=== PATIENT | female | born 1990 | race Caucasian/White ===

== ENCOUNTER 2020-07-13 03:04 | Inpatient (IN) | payer MEDICAID ==
[~2020-07-13 03:04] MED LIST: Lidocaine 1.5% with EPINEPHrine 1:200,000 5 ML Amp ONE
[2020-07-13] MEDS ORDERED: Ondansetron 4 MG/2 ML SDV IVPUSH PRN (04:31)
[2020-07-13] MEDS ORDERED: Sodium Chloride 0.9% 10 ML Syringe FLUSH PRN (04:31)
[2020-07-13] MEDS ORDERED: Ampicillin 2 GM in Sodium Chloride 0.9% 100 ML IV ONE (04:31)
[2020-07-13] MEDS ORDERED: Oxytocin/Lactated Ringers 10 UNIT/1,000 ML BAG IV SCH ×2 (04:45)
[2020-07-13] MEDS: Lactated Ringers 1,000 ML IV SCH ×4 (05:11→10:10)
[2020-07-13] MEDS ORDERED: diphenhydrAMINE 50 MG/ML SDV IVPUSH PRN (05:34)
[2020-07-13] MEDS ORDERED: ePHEDrine 50 MG/ML SDV IVPUSH PRN (05:34)
[2020-07-13] MEDS ORDERED: Bupivacaine/fentaNYL/NS 100 ML Bag EPIDUR PRN (05:34)
[2020-07-13] MEDS ORDERED: fentaNYL 100 MCG/2 ML SDV EPIDUR PRN (05:34)
--- NOTE | 2020-07-13 05:51 | PCM.PREANE ---
Preanesthetic Assessment - Procedure Proposed Procedure: Continuous labor epidural - Anesthesia/Transfusion/Family Hx Anesthesia History: Prior Anesthesia Without Reaction - Review of Systems General: No Symptoms Pulmonary: No Symptoms Cardiovascular: No Symptoms Gastrointestinal: No Symptoms Neurological: No Symptoms Other: Reports: None - Physical Assessment Vital Signs: Last Vital Signs Temp 98.3 F 07/13/20 03:28 Pulse 84 07/13/20 03:28 Resp 18 07/13/20 03:28 BP 133/80 07/13/20 03:28 Pulse Ox 98 07/13/20 03:28 Height: 1.78 m Weight: 94.256 kg ASA Class: 2 Mental Status: Alert & Oriented x3 Airway Class: Mallampati = 2 Dentition: Reports: Normal Dentition Thyro-Mental Finger Breadths: 3 Mouth Opening Finger Breadths: 3 ROM/Head Extension: Full Lungs: Clear to Auscultation, Normal Respiratory Effort Cardiovascular: Regular Rate, Regular Rhythm - Lab Values: Laboratory Last Values WBC 17.97 K/mm3 (3.98-10.04) H 07/13/20 04:45 RBC 4.18 M/mm3 (3.98-5.22) 07/13/20 04:45 Hgb 12.6 gm/dl (11.2-15.7) 07/13/20 04:45 Hct 37.4 % (34.1-44.9) 07/13/20 04:45 MCV 89.5 fl (79.4-94.8) 07/13/20 04:45 MCH 30.1 pg (25.6-32.2) 07/13/20 04:45 MCHC 33.7 g/dl (32.2-35.5) 07/13/20 04:45 RDW Std Deviation 43.7 fL (36.4-46.3) 07/13/20 04:45 Plt Count 220 K/mm3 (182-369) 07/13/20 04:45 MPV 11.2 fl (9.4-12.3) 07/13/20 04:45 Neut % (Auto) 80.6 % (34.0-71.1) H 07/13/20 04:45 Lymph % (Auto) 12.5 % (19.3-51.7) L 07/13/20 04:45 Cochran % (Auto) 6.0 % (4.7-12.5) 07/13/20 04:45 Eos % (Auto) 0.4 (0.7-5.8) L 07/13/20 04:45 Baso % (Auto) 0.1 % (0.1-1.2) 07/13/20 04:45 Neut # (Auto) 14.47 K/mm3 (1.56-6.13) H 07/13/20 04:45 Lymph # (Auto) 2.25 K/mm3 (1.18-3.74) 07/13/20 04:45 Cochran # (Auto) 1.07 K/mm3 (0.24-0.36) H 07/13/20 04:45 Eos # (Auto) 0.08 K/mm3 (0.04-0.36) 07/13/20 04:45 Baso # (Auto) 0.02 K/mm3 (0.01-0.08) 07/13/20 04:45 Membrane Rupture Negative 07/13/20 03:25 Blood Type O POSITIVE 07/13/20 04:45 Gel Antibody Screen Negative 07/13/20 04:45 - Allergies Allergies/Adverse Reactions: Allergies Allergy/AdvReac Type Severity Reaction Status Date / Time codeine Allergy Syncope Verified 07/13/20 05:42 PreAnesthesia Questionnaire - Past Surgical History HEENT Surgical History: Reports: Oral Surgery, Tonsillectomy GI Surgical History: Reports: Hernia Repair/Other - HOME MEDS Home Medications: Home Meds Omeprazole 20 mg PO DAILY 07/13/20 [History] Vits #93/Iron Fum/FA [ Formula Tablet] 1 each PO DAILY 07/13/20 [History] - CURRENT (IN HOUSE) MEDS Current Meds: Current Medications Diphenhydramine HCl (Benadryl) 25 mg IVPUSH Q6H PRN PRN Reason: pruritis Ephedrine Sulfate (Ephedrine Sulfate) 5 mg IVPUSH ASDIRECTED PRN PRN Reason: Hypotension Fentanyl (Sublimaze) 100 mcg EPIDUR Q3H PRN PRN Reason: Pain Fentanyl/Bupivacaine HCl (Fentanyl/Bupivacaine/Ns 2 Mcg-0.125% 100 Ml) 100 ml EPIDUR ASDIRECTED PRN PRN Reason: Pain Lactated Ringer's (Ringers, Lactated) 1,000 mls @ 100 mls/hr IV ASDIRECTED AUBREY Last Admin: 07/13/20 05:11 Dose: 100 mls/hr Documented by: Ampicillin Sodium 1 gm/ Sodium (Chloride) 100 mls @ 200 mls/hr IV Q4H AUBREY Oxytocin/Lactated Ringer's (Pitocin In Lr 10 Units/1,000 Ml) 10 unit in 1,000 mls @ 12 mls/hr IV TITRATE AUBREY; Protocol Oxytocin/Lactated Ringer's (Pitocin In Lr 10 Units/1,000 Ml) 10 unit in 1,000 mls @ 100 mls/hr IV .CONTINUOUS AUBREY Ondansetron HCl (Zofran) 4 mg IVPUSH Q4H PRN PRN Reason: Nausea/Vomiting Sodium Chloride (Saline Flush) 10 ml FLUSH ASDIRECTED PRN PRN Reason: Keep Vein Open Discontinued Medications Ampicillin Sodium 2 gm/ Sodium (Chloride) 100 mls @ 200 mls/hr IV ONETIME ONE Stop: 07/13/20 05:00 Last Admin: 07/13/20 05:11 Dose: 200 mls/hr Documented by:
--- NOTE | 2020-07-13 07:53 | PCM.LDHP ---
L&D History of Present Illness - General Date of Service: 07/13/20 Admit Problem/Dx: Patient Status Order with Admit Dx/Problem 07/13/20 03:47 Patient Status [ADT] Routine 07/13/20 04:32 Patient Status [ADT] Routine Admission Diagnosis/Problem Admission Diagnosis/Problem 07/13/20 07:44 Hoang is a 29-year-old 2 para 1-0-0-1 female admitted on the a.m. of 07/13/2020 at 7-1/7 weeks gestational age with an ANDREA of 08/03/2020 for active labor and advanced cervical dilation. Source of Information: Patient History Limitations: Reports: No Limitations - History of Present Illness Introduction:: Hoang is a 29-year-old 2 para 1-0-0-1 female admitted on the a.m. of 07/13/2020 at 7-1/7 weeks gestational age with an ANDREA of 08/03/2020 for active labor and advanced cervical dilation. She reports starting labor early this a.m. Was unable to get adequate sleep. Contractions coming every 2 to 4 minutes, moderate intensity. On evaluation in the hospital she progressed from 2 to 3 cm to 5 cm and was fadi as reported by the patient. She is admitted for active labor. At the time my evaluation she was 5 cm, -3 station, membranes intact. No acute vaginal bleeding noted heart tones reassuring. [employer] history: 2 para 1-0-0-1. ANDREA of 08/03/2020 as determined by her first ultrasound done at 6-4/7 weeks gestational age and supported by 2 other ultrasounds done on 03/16/2020 and 04/25/2020. Patient has a history of menarche at approximately age pain. Cycles q. 28 days and regular. Not using any control at the time of conception. No abnormal Pap smears or STDs noted in the past. Her last delivery included the followin. Male infant born 08/25/2015 at 39-5/7 weeks gestational age after 12 hours of labor7 pound 6 ounce infant born via NSVDepidural used. Child's name is Ginger Vee course. Patient was seen initially at 6 weeks and 4 days. Ultrasound done at that time confirmed ANDREA of 08/03/2020. Her course was with regular visits. Patient lost weight during the course of but was eating well. Her vital signs are stable throughout the course. She is group B strep positive and is received her first dose of prophylactic ampicillin. She declined genetic testing. She has some depression symptoms with anxiety but is not on any medications for this. Did have some heartburn during which was treated with Nexium successfully. She is planning to bottlefeed. Her EPDS score was 7/30 on 04/03/2020. She failed her first glucose tolerance test but passed her 3-hour GTT with the values of 83, 159, 151 and 100. labs include the following: Blood is O+ with negative antibody screen. hemoglobin is 12.7 g/dL and platelets are 329,000. She is rubella immune. RPR is nonreactive. Urine culture was negative and hepatitis B surface antigen and HIV assays were both negative also. Her chlamydia and gonorrhea tests were negative. Second trimester labs showed a hemoglobin 11.7 g/dL which time she was advised to get on iron supplementation. Her platelet count was 245,000. Her RPR was nonreactive. RPR was again repeated on 05/01/2020 which was nonreactive. Her group B strep screen was positive. Allergies: 1. Codeine derivatives which cause nausea and vomiting 2. Relpaxreaction unknown. Medications: 1. Nexium 20 mg p.o. daily as needed for gastric reflux 2. vitamins 1 daily Past medical history: 1. x1. 2. History of anxiety and depression treated with sertraline after her last 3. GERD treated with Nexium successfully. Patient has a history of hiatal hernia. Past surgical history: 1. Tonsillectomy and wisdom tooth extraction 2. EGD x2 Family history: No significant related issues noted. No bleeding, blo od clotting, anesthesia or asthma noted in the family. Social history: Patient is . is Edward. 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 She lives in [place], [place]. She does not use any significant also alcohol, drugs or tobacco. Review of systems: In general patient has no complaints. She is having some c ontractions. These are mild to moderate in intensity. Baby has been active. Skin: Negative Lungs: No infectious symptoms or shortness of breath Cardiovascular: No chest pain or exercise intolerance Breasts: No lumps, changes in size, pain, dimpling, discharge or axillary or supraclavicular concerns. GI: Negative : changes. Musculoskeletal: Negative Neurological: Negative Physical exam: In general the patient is well-developed, well-nourished, pleasant female of stated age in no acute distress. Evaluation in clinic patient's blood pressure was 112/74. Fundal height was 37. Weight was 203.8. heart rate was 142 bpm. Skin is warm dry without lesions. HEENT, neck and back within normal limits. Lungs are clear with good breath sounds in all lung vallejo. Cardiovascular exam shows regular and rhythm without murmurs. Abdomen is avid with fundal height of 37 cm. Baby in vertex presentation. Genital per duration is as described above. Extremities and neurological exam are grossly within normal limits. Pain Score: 7 - Related Data Allergies/Adverse Reactions: Allergies Allergy/AdvReac Type Severity Reaction Status Date / Time codeine Allergy Syncope Verified 07/13/20 05:42 Home Medications: Home Meds Omeprazole 20 mg PO DAILY 07/13/20 [History] Vits #93/Iron Fum/FA [ Formula Tablet] 1 each PO DAILY 07/13/20 [History] Past Medical History - Past Health History Medical/Surgical History: Denies Medical/Surgical History Cardiovascular History: Reports: None Gastrointestinal History: Reports: None [employer]PER[employer]OR History: Reports: - Past Surgical History HEENT Surgical History: Reports: Oral Surgery, Tonsillectomy GI Surgical History: Reports: Hernia Repair/Other Social & Family History - Family History Family Medical History: No Pertinent Family History Cardiac: Reports: Other (See Below) Other Cardiac Family History: Paternal Grandpa Heart Attack and Stents Placed. Father - blockage, but no surgery needed Psychiatric: Reports: Depression Endocrine/Metabolic: Reports: Other (See Below) Other Endocrine/Metabolic Family History: Maternal Grandma - Diabetes, not specified - Tobacco Use Tobacco Use Status *Q: Never Tobacco User Second Hand Smoke Exposure: No - Recreational Drug Use Recreational Drug Use: No H&P Review of Systems - Review of Systems: Review Of Systems: See Below L&D Exam - Exam Exam: See Below - Vital Signs Vital Signs: Last Vital Signs Temp 36.8 C 07/13/20 03:28 Pulse 84 07/13/20 03:28 Resp 18 07/13/20 03:28 BP 133/80 07/13/20 03:28 Pulse Ox 98 07/13/20 03:28 Weight: 94.256 kg - Patient Data Lab Results Last 24 hrs: Laboratory Results - last 24 hr 07/13/20 07/13/20 07/13/20 Range/Units 03:25 04:45 04:45 WBC 17.97 H (3.98-10.04) K/mm3 RBC 4.18 (3.98-5.22) M/mm3 Hgb 12.6 (11.2-15.7) gm/dl Hct 37.4 (34.1-44.9) % MCV 89.5 (79.4-94.8) fl MCH 30.1 (25.6-32.2) pg MCHC 33.7 (32.2-35.5) g/dl RDW Std Deviation 43.7 (36.4-46.3) fL Plt Count 220 (182-369) K/mm3 MPV 11.2 (9.4-12.3) fl Neut % (Auto) 80.6 H (34.0-71.1) % Lymph % (Auto) 12.5 L (19.3-51.7) % [place] % (Auto) 6.0 (4.7-12.5) % Eos % (Auto) 0.4 L (0.7-5.8) Baso % (Auto) 0.1 (0.1-1.2) % Neut # (Auto) 14.47 H (1.56-6.13) K/mm3 Lymph # (Auto) 2.25 (1.18-3.74) K/mm3 [place] # (Auto) 1.07 H (0.24-0.36) K/mm3 Eos # (Auto) 0.08 (0.04-0.36) K/mm3 Baso # (Auto) 0.02 (0.01-0.08) K/mm3 Membrane Rupture Negative Blood Type O POSITIVE Gel Antibody Screen Negative Result Diagrams: 07/13/20 04:45 Problem List Initiated/Reviewed/Updated: Yes Orders Last 24hrs: Active Orders 24 hr Category Date Time Status Patient Status [ADT] Routine ADT 07/13/20 04:32 Active Activity as Tolerated [RC] PFP Care 07/13/20 04:31 Active Communication Order [RC] ASDIRECTED Care 07/13/20 04:31 Active Heart Tones [RC] ASDIRECTED Care 07/13/20 04:32 Active Non Stress Test [RC] PER UNIT ROUTINE Care 07/13/20 03:47 Active Notify Provider [RC] ASDIRECTED Care 07/13/20 05:34 Active Notify Provider [RC] PFP Care 07/13/20 04:31 Active Notify Provider [RC] PRN Care 07/13/20 04:31 Active Peripheral IV Care [RC] . DIRECTED Care 07/13/20 04:32 Active Vital Signs [RC] PER UNIT ROUTINE Care 07/13/20 03:47 Active Vital Signs [RC] PER UNIT ROUTINE Care 07/13/20 04:31 Active Regular Diet [DIET] Diet 07/13/20 Breakfast Active RAPID PLASMA REAGIN,RPR [CHEM] Routine Lab 07/13/20 04:45 Received Ampicillin 1 gm Med 07/13/20 09:00 Active Sodium Chloride 0.9% [Normal Saline] 100 ml IV Q4H Bupivacaine/fentaNYL/NS [fentaNYL/Bupivacaine/NS 2 MCG- Med 07/13/20 05:34 Active 0.125% 100 ML] 100 ml EPIDUR ASDIRECTED PRN Lactated Ringers [Ringers, Lactated] 1,000 ml Med 07/13/20 04:45 Active IV ASDIRECTED Ondansetron [Zofran] Med 07/13/20 04:31 Active 4 mg IVPUSH Q4H PRN Oxytocin/Lactated Ringers [Pitocin in LR 10 Units/1,000 Med 07/13/20 04:45 Active ML] 10 unit in 1,000 ml IV .CONTINUOUS Oxytocin/Lactated Ringers [Pitocin in LR 10 Units/1,000 Med 07/13/20 04:45 Active ML] 10 unit in 1,000 ml IV TITRATE Sodium Chloride 0.9% [Saline Flush] Med 07/13/20 04:31 Active 10 ml FLUSH ASDIRECTED PRN diphenhydrAMINE [Benadryl] Med 07/13/20 05:34 Active 25 mg IVPUSH Q6H PRN ePHEDrine [ePHEDrine sulfate] Med 07/13/20 05:34 Active 5 mg IVPUSH ASDIRECTED PRN fentaNYL [Sublimaze] Med 07/13/20 05:34 Active 100 mcg EPIDUR Q3H PRN Electronic Heart Tones Ext w TOCO [WOMSER] Oth 07/13/20 04:31 Ordered Routine Electronic Heart Tones Internal [WOMSER] Per Unit Oth 07/13/20 04:31 Ordered Routine Peripheral IV Insertion Adult [OM.PC] Routine Oth 07/13/20 04:31 Ordered Resuscitation Status Routine Resus Stat 07/13/20 03:47 Ordered Medication Orders Diphenhydramine HCl (Benadryl) 25 mg IVPUSH Q6H PRN PRN Reason: pruritis Ephedrine Sulfate (Ephedrine Sulfate) 5 mg IVPUSH ASDIRECTED PRN PRN Reason: Hypotension Fentanyl (Sublimaze) 100 mcg EPIDUR Q3H PRN PRN Reason: Pain Last Admin: 07/13/20 05:56 Dose: 100 mcg Documented by: GRETA Fentanyl/Bupivacaine HCl (Fentanyl/Bupivacaine/Ns 2 Mcg-0.125% 100 Ml) 100 ml EPIDUR ASDIRECTED PRN PRN Reason: Pain Last Admin: 07/13/20 05:56 Dose: 100 ml Documented by: GRETA Lactated Ringer's (Ringers, Lactated) 1,000 mls @ 100 mls/hr IV ASDIRECTED AUBREY Last Admin: 07/13/20 06:57 Dose: 100 mls/hr Documented by: Infusion: 07/13/20 06:57 Dose: 100 mls/hr Documented by: Admin: 07/13/20 06:01 Dose: 100 mls/hr Documented by: Infusion: 07/13/20 06:01 Dose: 100 mls/hr Documented by: Admin: 07/13/20 05:11 Dose: 100 mls/hr Documented by: GRETA Ampicillin Sodium 1 gm/ Sodium (Chloride) 100 mls @ 200 mls/hr IV Q4H AUBREY Oxytocin/Lactated Ringer's (Pitocin In Lr 10 Units/1,000 Ml) 10 unit in 1,000 mls @ 12 mls/hr IV TITRATE AUBREY; Protocol Oxytocin/Lactated Ringer's (Pitocin In Lr 10 Units/1,000 Ml) 10 unit in 1,000 mls @ 100 mls/hr IV .CONTINUOUS AUBREY Ondansetron HCl (Zofran) 4 mg IVPUSH Q4H PRN PRN Reason: Nausea/Vomiting Sodium Chloride (Saline Flush) 10 ml FLUSH ASDIRECTED PRN PRN Reason: Keep Vein Open Assessment/Plan Comment:: 1. And 1/7-week intrauterine , active labor with advanced cervical dilation 2. Group B strep screen positive patient has received first dose of prophyl actic ampicillin 3. Patient has desire for epidural 4. Patient plans to bottlefeed. 5. Tdap given during on 05/30/2020. She is rubella immune. HPV vaccination given in 2007. Hepatitis B vaccination given in 2003. Meningeal vaccination given in 2007. Plan: 1. Anticipate 2. Group B strep prophylaxis with ampicillin per protocol 3. Admission labs consist of Covid19 testing, RPR and CBC. 4. Routine labor care.
[2020-07-13] MEDS: Ampicillin 1 GM in Sodium Chloride 0.9% 100 ML IV SCH ×2 (09:03→15:52)
[2020-07-13] MEDS ORDERED: Benzocaine/Menthol 20%-0.5% Spray 56 GM Canister TOP PRN ×2 (15:17→15:52)
[2020-07-13] MEDS ORDERED: Witch Hazel Medicated Pads 40/Jar TOP PRN ×2 (15:17→15:52)
[2020-07-13] MEDS ORDERED: Ibuprofen 600 MG Tab PO PRN (15:52)
[2020-07-13] MEDS ORDERED: Acetaminophen 325 MG Tab PO PRN (15:52)
[2020-07-13] MEDS ORDERED: Docusate Sodium 100 MG Cap PO PRN (15:52)
--- NOTE | 2020-07-13 15:53 | PCM.SN.2 ---
- Free Text/Narrative Note: Delivery note: Hoang is a 29-year-old 2 now para 2-0-0-2 female admitted on the a.m. of 07/13/2020 at 37-1/7 weeks gestational age with an ANDREA of 08/03/2020 for active labor and advanced cervical dilation. The patient progressed slowly until Pitocin augmentation was started. With this she progressed to 6 to 7 cm. She underwent artificial rupture membranes and then progressed rapidly to complete cervical dilation. At 1307 hrs. on 07/13/2020 patient delivered a viable, 3140 g (6 pounds 15 ounces male with Apgars of 8 and 9 in 8 direct occiput anterior position. Perineum remained intact. Baby was placed on mom's abdomen. Pitocin was increased to 500 cc/h to facilitate increase in uterine tone and decrease likelihood of bleeding. Cord is allowed to pulsate times approximately 2 to 3 minutes and then was clamped x2 and cut by the baby's father. The umbilical cord had 3 vessels. Cord blood was obtained. The placenta delivered in a Gudino fashion, appeared intact and complete and was discarded per patient desire. Estimated blood loss was 100 cc. Patient plans to bottlefeed. Condition: Good.
--- NOTE | 2020-07-14 05:24 | PCM.DCSUM1 ---
Discharge Summary - Hospital Course Free Text/Narrative:: Hoang is a 29-year-old 2 now para 2-0-0-2 female admitted on the a.m. of 07/13/2020 at 37-1/7 weeks gestational age with an ANDERA of 08/03/2020 for active labor and advanced cervical dilation. The patient progressed slowly until Pitocin augmentation was started. With this she progressed to 6 to 7 cm. She underwent artificial rupture membranes and then progressed rapidly to complete cervical dilation. At 1307 hrs. on 07/13/2020 patient delivered a viable, 3140 g (6 pounds 15 ounces male infant with Apgars of 8 and 9 in 8 direct occiput anterior position. Perineum remained intact. Baby was placed on mom's abdomen. Pitocin was increased to 500 cc/h to facilitate increase in uterine tone and decrease likelihood of bleeding. Cord is allowed to pulsate times approximately 2 to 3 minutes and then was clamped x2 and cut by the baby's father. The umbilical cord had 3 vessels. Cord blood was obtained. The placenta delivered in a Gudino fashion, appeared intact and complete and was discarded per patient desire. Estimated blood loss was 100 cc. Patient plans to bottlefeed. the patient is ambulating well, has minimal lochia. She is bottle- feeding without concerns. She is voiding without problems. She is desiring discharge home. Condition: Good. Diagnosis: Stroke: No - Discharge Data Discharge Date: 07/14/20 Discharge Disposition: Home, Self-Care 01 Condition: Good - Referral to Home Health Primary Care Physician: Justin Reyes MD - Patient Instructions Diet: Regular Diet as Tolerated Activity: As Tolerated (No intercourse or tampons until bleeding resolves) Driving: May Drive Today Showering/Bathing: May Shower Showering/Bathing, Other: May take a bath Notify Provider of: Fever, Increased Pain, Swelling and Redness, Nausea and/or Vomiting - Discharge Plan Home Medications: Home Meds Vits #93/Iron Fum/FA [ Formula Tablet] 1 each PO DAILY 07/13/20 [History] Acetaminophen [Tylenol] 650 mg PO Q4H PRN tablet 07/14/20 [Rx] Docusate Sodium [Colace] 100 mg PO BID PRN cap 07/14/20 [Rx] Ibuprofen [Motrin] 600 mg PO Q4H PRN tablet 07/14/20 [Rx] yessy Flowers [Tucks] 1 pad TOP ASDIRECTED PRN pad 07/14/20 [Rx] Referrals: Justin Reyes MD [Primary Care Provider] - (Return to clinicDr. Reyes or Sindhu olivera, nurse practitioner, 2 weeks.) - Discharge Summary/Plan Comment DC Time >30 min.: No Discharge Summary/Plan Comment: Discharge instructions: 1. Discharge home 2. Diet, activity and follow-up discussed with patient. Recommend nursing diet with increased calories and calcium. 3. Precautions given concern increased pain, bleeding, temperature, signs/symptoms of DVT/PE. 4. Medications per home medication was printed, discussed with and given to the patient. 5. Return to clinic[facility]Dr[facility] Reyes [facility] Diagnosis: Term -delivered Condition: Good - Patient Data Vitals - Most Recent: Last Vital Signs Temp 36.7 C 07/14/20 03:48 Pulse 69 07/14/20 03:48 Resp 16 07/14/20 03:48 BP 115/57 L 07/14/20 03:48 Pulse Ox 99 07/14/20 03:48 Weight - Most Recent: 94.256 kg I&O - Last 24 hours: Intake & Output 07/13/20 07/13/20 07/14/20 14:59 22:59 06:59 Intake Total 3200 2000 Output Total 900 Balance 2300 2000 Lab Results - Last 24 hrs: Laboratory Results - last 24 hr 07/13/20 07/13/20 Range/Units 04:45 04:45 RPR Non-reactive (NONREACTIVE) Gel Antibody Screen Negative Med Orders - Current: Current Medications Acetaminophen (Tylenol) 650 mg PO Q4H PRN PRN Reason: mild pain or fever Benzocaine/Menthol (Dermoplast Pain Relief [place]) 0 gm TOP ASDIRECTED PRN PRN Reason: Perineal Comfort Measure Docusate Sodium (Colace) 100 mg PO BID PRN PRN Reason: Constipation Ibuprofen (Motrin) 600 mg PO Q4H PRN PRN Reason: Mild pain or fever Last Admin: 07/13/20 22:04 Dose: 600 mg Documented by: Prenat Multivit/Hydraulic Hammer Operator/Iron/Folic Ac ( Plus Iron) 1 each PO DAILY [facility] Yessy Flowers (Tucks) 1 pad TOP ASDIRECTED PRN PRN Reason: Perineal Comfort Measure Discontinued Medications Benzocaine/Menthol (Dermoplast Pain Relief [place]) 0 gm TOP ASDIRECTED PRN PRN Reason: perineal discomfort Last Admin: 07/13/20 15:32 Dose: 1 can Documented by: Diphenhydramine HCl (Benadryl) 25 mg IVPUSH Q6H PRN PRN Reason: pruritis Ephedrine Sulfate (Ephedrine Sulfate) 5 mg IVPUSH ASDIRECTED PRN PRN Reason: Hypotension Fentanyl (Sublimaze) 100 mcg EPIDUR Q3H PRN PRN Reason: Pain Last Admin: 07/13/20 05:56 Dose: 100 mcg Documented by: Fentanyl/Bupivacaine HCl (Fentanyl/Bupivacaine/Ns 2 Mcg-0.125% 100 Ml) 100 ml EPIDUR ASDIRECTED PRN PRN Reason: Pain Last Admin: 07/13/20 05:56 Dose: 100 ml Documented by: Lactated Ringer's (Ringers, Lactated) 1,000 mls @ 100 mls/hr IV ASDIRECTED [facility] Last Admin: 07/13/20 10:10 Dose: 100 mls/hr Documented by: Ampicillin Sodium 2 gm/ Sodium (Chloride) 100 mls @ 200 mls/hr IV ONETIME ONE Stop: 07/13/20 05:00 Last Admin: 07/13/20 05:11 Dose: 200 mls/hr Documented by: Ampicillin Sodium 1 gm/ Sodium (Chloride) 100 mls @ 200 mls/hr IV Q4H [facility] Last Admin: 07/13/20 15:52 Dose: Not Given Documented by: Oxytocin/Lactated Ringer's (Pitocin In Lr 10 Units/1,000 Ml) 10 unit in 1,000 mls @ 12 mls/hr IV TITRATE [facility]; Protocol Last Titration: 07/13/20 11:00 Dose: 16 munits/min, 96 mls/hr Documented by: Oxytocin/Lactated Ringer's (Pitocin In Lr 10 Units/1,000 Ml) 10 unit in 1,000 mls @ 100 mls/hr IV .CONTINUOUS [facility] Lidocaine/Epinephrine (Xylocaine-Mpf 1.5% W/Epinephrine 1:200,000) 5 ml .ROUTE .STK-MED ONE Stop: 07/13/20 00:01 Ondansetron HCl (Zofran) 4 mg IVPUSH Q4H PRN PRN Reason: Nausea/Vomiting Last Admin: 07/13/20 07:54 Dose: 4 mg Documented by: Sodium Chloride (Saline Flush) 10 ml FLUSH ASDIRECTED PRN PRN Reason: Keep Vein Open Withair Flowers (Chinyere) 1 pad TOP ASDIRECTED PRN PRN Reason: perineal discomfort Last Admin: 07/13/20 15:32 Dose: 1 container Documented by:
[2020-07-14] MEDS ORDERED: Prenatal Multivitamin with Calcium/Folic Acid/Iron Tab PO SCH (09:00)
[2020-07-14 14:03] VITALS: BP 111/66; PULSE 54
--- NOTE | 2020-07-14 14:03 | PCM48HPAN ---
Post Anesthesia Note - EVALUATION WITHIN 48HRS OF ANESTHETIC Vital Signs in Normal Range: Yes Patient Participated in Evaluation: Yes Respiratory Function Stable: Yes Airway Patent: Yes Cardiovascular Function Stable: Yes Hydration Status Stable: Yes Pain Control Satisfactory: Yes Nausea and Vomiting Control Satisfactory: Yes Mental Status Recovered: Yes Vital Signs: Last Vital Signs Temp 36.7 C 07/14/20 03:48 Pulse 69 07/14/20 03:48 Resp 16 07/14/20 03:48 BP 115/57 L 07/14/20 03:48 Pulse Ox 99 07/14/20 03:48
== END 2020-07-14 14:45 | disposition home or self-care (01) | DRG 807 ==
LOC: JD.OB 03:04 → JD.OBCHECK 03:04 → JD.OB 04:32 → OBSVTOIN 13:07 → JD.OB 13:08
PROVIDERS: ADMIT Obstetrics & Gynecology; ATTEND Obstetrics & Gynecology
PROC: 10E0XZZ Delivery of Products of Conception, External Approach (ICD-10-PCS; principal; 2020-07-13)
PROC: 10907ZC Drainage of Amniotic Fluid, Therapeutic from Products of Conception, Via Natural or Artificial Opening (ICD-10-PCS; 2020-07-13)
PROC: 3E0R3BZ Introduction of Anesthetic Agent into Spinal Canal, Percutaneous Approach (ICD-10-PCS; 2020-07-13)
PROC: 00HU33Z Insertion of Infusion Device into Spinal Canal, Percutaneous Approach (ICD-10-PCS; 2020-07-13)
DX: O99.824 Streptococcus B carrier state complicating childbirth (principal); Z37.0 Single live birth; Z88.5 Allergy status to narcotic agent; Z3A.37 37 weeks gestation of pregnancy
CPT/HCPCS: 36415; 51702; 59025; 59409; 84112; 85025; 86592; 86850; 86900; 86901; A9270-GY; J0290; J2405; J2590; J3010; J7050; J7120

== ENCOUNTER 2024-04-06 08:00 | Day surgery (SDC) | payer MEDICAID ==
[~2024-04-06 08:00] MED LIST changes: -Lidocaine 1.5% with EPINEPHrine 1:200,000 5 ML Amp ONE; +Sodium Chloride 0.9% 10 ML Syringe FLUSH PRN; +Sodium Chloride 0.9% 10 ML Syringe FLUSH SCH
[2024-04-06] MEDS: Lactated Ringers 1,000 ML IV SCH (08:20)
[2024-04-06] MEDS ORDERED: Midazolam 1 MG/ML 2 ML SDV ONE (08:47)
[2024-04-06] MEDS ORDERED: fentaNYL 100 MCG/2 ML SDV ONE (08:47)
[2024-04-06] MEDS ORDERED: Lidocaine 1% PF 2 ML SDV ONE ×2 (08:47)
[2024-04-06] MEDS ORDERED: Lidocaine 1% 4 ML ONE (08:47)
[2024-04-06] MEDS ORDERED: Propofol 200 MG/20 ML SDV ONE (08:47)
[2024-04-06] MEDS ORDERED: Lidocaine 1% 2 ML ONE (08:48)
[2024-04-06 12:38] VITALS: BP 114/80; PULSE 57
== END 2024-04-06 10:05 | disposition home or self-care (01) ==
LOC: JD.SDS 08:00
PROVIDERS: ATTEND Surgery
DX: K64.0 First degree hemorrhoids (principal); K64.4 Residual hemorrhoidal skin tags; F32.A Depression, unspecified; K21.9 Gastro-esophageal reflux disease without esophagitis; F41.9 Anxiety disorder, unspecified; Z79.899 Other long term (current) drug therapy; Z88.5 Allergy status to narcotic agent; Z88.8 Allergy status to other drugs, medicaments and biological substances
CPT/HCPCS: 45378; 81025; J2250; J2704; J3010; J7120; J3490

== ENCOUNTER 2024-04-29 10:13 | Day surgery (SDC) | payer MEDICAID ==
[~2024-04-29 10:13] MED LIST changes: +Lidocaine 1% 5 ML VIAL ONE; +Midazolam 1 MG/ML 2 ML SDV ONE; +Propofol 200 MG/20 ML SDV ONE; +fentaNYL 100 MCG/2 ML SDV ONE
[2024-04-29] MEDS ORDERED: Bacitracin Oint 15 GM Tube ONE (10:35)
[2024-04-29] MEDS ORDERED: Ondansetron 4 MG/2 ML SDV ONE (11:15)
[2024-04-29] MEDS: Bupivacaine 0.5% 30 ML SDV ONE (11:30)
[2024-04-29] MEDS: Lactated Ringers 1,000 ML IV SCH (11:30)
[2024-04-29] MEDS ORDERED: Lactated Ringers 1,000 ML ONE (12:03)
[2024-04-29] MEDS ORDERED: Ketorolac 30 MG/ML SDV ONE (12:04)
[2024-04-29] MEDS: Acetaminophen/HYDROcodone 325-5 MG Tab PO PRN (13:28)
[2024-04-29] MEDS: EPINEPHrine 1 MG/ML SDV ONE (13:28)
[2024-04-29] MEDS: Lidocaine 1% 10 ML MDV ONE (13:29)
[2024-04-29 14:08] VITALS: BP 132/85; PULSE 72
== END 2024-04-29 13:49 | disposition home or self-care (01) ==
LOC: JD.SDS 10:13
PROVIDERS: ATTEND Surgery
DX: K64.4 Residual hemorrhoidal skin tags (principal); F41.9 Anxiety disorder, unspecified; F32.A Depression, unspecified; K21.9 Gastro-esophageal reflux disease without esophagitis; Z88.5 Allergy status to narcotic agent; Z88.8 Allergy status to other drugs, medicaments and biological substances; Z79.899 Other long term (current) drug therapy
CPT/HCPCS: 81025; A9270-GY; J0171; J0665; J1885; J2250; J2405; J2704; J3010; J3490; J7120

== ENCOUNTER 2024-05-02 19:05 | Emergency (ER) | payer MEDICAID ==
[2024-05-02] MEDS: diphenhydrAMINE 50 MG/ML SDV IVPUSH ONE (19:37)
[2024-05-02] MEDS: Metoclopramide 10 MG/2 ML SDV IVPUSH ONE (19:37)
[2024-05-02] MEDS: HYDROmorphone 1 MG/ML Syringe IVPUSH ONE ×2 (19:37→20:39)
[2024-05-02] MEDS: Sodium Chloride 0.9% 1,000 ML IV SCH (19:44)
[2024-05-02 21:40] VITALS: BP 136/80; PULSE 71
== END 2024-05-02 21:26 | disposition home or self-care (01) ==
LOC: JD.ED 19:05
DX: G89.18 Other acute postprocedural pain (principal); K21.9 Gastro-esophageal reflux disease without esophagitis; Z88.5 Allergy status to narcotic agent; Z88.8 Allergy status to other drugs, medicaments and biological substances; Z79.899 Other long term (current) drug therapy; Z98.890 Other specified postprocedural states
CPT/HCPCS: 96361; 96374; 96375; 96376; 99283; J1170; J1200; J2765; J7030

== ENCOUNTER 2024-08-13 11:32 | Emergency (ER) | payer MEDICAID ==
[2024-08-13 11:51] VITALS: BP 123/81; PULSE 69
[2024-08-13 12:06] LABS: BASOPHILS ABSOLUTE AUTO 0.1 K/mm3 (0.0-0.2); BASOPHILS PERCENT AUTO 0.6 % (0.0-1.0); EOSINOPHILS ABSOLUTE AUTO 0.2 K/mm3 (0.0-0.4); EOSINOPHILS PERCENT AUTO 2.3 % (0.0-6.0); HEMATOCRIT 39.5 % (37.0-47.0); HEMOGLOBIN 13.4 gm/dl (12.0-16.0); IMMATURE GRAN ABSOLUTE AUTO 0.03 K/mm3 (0.00-0.05); IMMATURE GRAN PERCENT AUTO 0.4 % (0.0-0.4); LYMPHOCYTES ABSOLUTE AUTO 1.9 K/mm3 (1.0-4.8); MEAN CORPUSCULAR HEMOGLOBIN 30.3 pg (28.0-32.0); MEAN CORPUSCULAR HGB CONC 33.9 g/dl (32.0-36.0); MEAN CORPUSCULAR VOLUME 89.4 fl (83.0-99.0); MEAN PLATELET VOLUME 10.4 fl (9.4-12.3); MONOCYTES ABSOLUTE AUTO 0.6 K/mm3 (0.0-0.8); MONOCYTES PERCENT AUTO 8.3 % (0.0-8.0); NEUTROPHILS ABSOLUTE AUTO 4.9 K/mm3 (1.8-7.7); NEUTROPHILS PERCENT AUTO 63.4 % (41.0-71.0); PLATELET COUNT,PLT 286 K/mm3 (150-400); RED BLOOD CELL COUNT 4.42 M/mm3 (4.10-5.30); WHITE BLOOD CELL COUNT,WBC 7.75 K/mm3 (3.9-11.3)
[2024-08-13 12:20] LABS: APPEARANCE,URINE CLEAR (Clear); BILIRUBIN,URINE NEGATIVE (Negative); COLOR,URINE YELLOW (Yellow); GLUCOSE,URINE NEGATIVE (Negative); KETONES,URINE TRACE (Negative); LEUKOCYTE ESTERASE,URINE 1+ (Negative); NITRITE,URINE NEGATIVE (Negative); OCCULT BLOOD,URINE TRACE-INTACT (Negative); PROTEIN,URINE NEGATIVE (Negative); UROBILINOGEN,URINE 0.2 (0.2-1.0)
[2024-08-13 12:28] LABS: BACTERIA,URINE FEW /hpf (FEW); EPITHELIAL CELLS,URINE 0-5 /hpf (0-5); MUCUS,URINE FEW /hpf (FEW); RBC,URINE 0-5 /hpf (0-5); WBC,URINE 0-5 /hpf (0-5)
[2024-08-13 12:32] LABS: A/G RATIO 1.1 (1-2); ALBUMIN 4.1 g/dl (3.4-5.0); ANION GAP 16.7 (5-15); BILIRUBIN TOTAL 0.7 mg/dL (0.2-1.0); BUN/CREATININE RATIO 13.8 (14-18); C-REACTIVE PROTEIN 0.58 mg/dL (<0.30); CALCIUM 9.2 mg/dL (8.5-10.1); CREATININE 0.8 mg/dL (0.55-1.02); EST CRCL DRUG DOSING (CG) 108.16 mL/min; POTASSIUM,K 3.7 mEq/L (3.5-5.1); PROTEIN TOTAL,TP 7.7 g/dl (6.4-8.2)
[2024-08-13] MEDS: Sodium Chloride 0.9% 1,000 ML IV ONE (12:51)
== END 2024-08-13 13:53 | disposition home or self-care (01) ==
LOC: JD.ED 11:32
DX: R10.31 Right lower quadrant pain (principal); R10.13 Epigastric pain; K21.9 Gastro-esophageal reflux disease without esophagitis; Z79.899 Other long term (current) drug therapy; Z88.8 Allergy status to other drugs, medicaments and biological substances; Z88.6 Allergy status to analgesic agent
CPT/HCPCS: 36415; 76705; 80053; 81001; 83690; 84703; 85025; 86140; 87086; 96360; 99284; J7030